=== PATIENT | female | born 1940 | race Two or more races ===

== ENCOUNTER 2017-12-02 12:57 | Emergency (ER) | payer MEDICARE, OTHER ==
--- NOTE | 2017-12-02 13:44 | ER Document Report ---
ED General - General Chief Complaint: Head Injury Stated Complaint: FALL/HEAD PAIN Time Seen by Provider: 12/02/17 13:24 Mode of Arrival: Ambulatory Information source: Patient, Relative - daughter Notes: Patient presents to emergency department after falling hitting her head on the dresser at approximately 11 PM last night. Family reports they heard the thump and went up the right away. Denies change in LOC.. Patient is unsure why she fell. Denies dizziness. The patient is very pleasant. Family reports she is acting the same as always. Patient has been eating and drinking without nausea vomiting. No deficits noted. Patient does have a history of subdural hemaotoma pproximately 4 years ago after she fell and hit her head. Is taking Coumadin for atrial fib. Daughter is concerned because last INR was approximately 6. Patient does complain of a headache. Family did not give her any type of pain medication. TRAVEL OUTSIDE OF THE [place] 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 Lives with: Family Family History: Reviewed & Not Pertinent Patient has suicidal ideation: No Patient has homicidal ideation: No - Past Medical History Cardiac Medical History: Reports: Hx Atrial Fibrillation, Hx DVT - bilateral Renal/ Medical History: Denies: Hx Peritoneal Dialysis Traumatic Medical History: Reports: Other - subdural hematoma Past Surgical History: Reports: Hx Thyroid Surgery Review of Systems - Review of Systems Notes: Review HPI for review of systems., All other systems negative Physical Exam - Vital signs Vitals: Temp Pulse Resp BP Pulse Ox 97.8 F 60 16 143/58 H 100 12/02/17 13:04 12/02/17 13:04 12/02/17 13:04 12/02/17 13:04 12/02/17 13:04 - Notes Notes: PHYSICAL EXAMINATION: GENERAL: Well-appearing and in no acute distress talkative, happy HEAD: Atraumatic, normocephalic. EYES: Pupils equal round and reactive to light, extraocular movements intact, sclera anicteric, conjunctiva are normal. ENT: nares patent, oropharynx clear without exudates. Moist mucous membranes. NECK: Normal range of motion, supple without lymphadenopathy LUNGS: CTAB and equal. No wheezes rales or rhonchi. HEART: Regular rate and rhythm without murmurs ABDOMEN: no c/o pain, eating/drinking as normal per daughter EXTREMITIES: Normal range of motion, no pitting edema. No cyanosis. NEUROLOGICAL: Cranial nerves grossly intact. Normal sensory/motor exams. PSYCH: Normal mood, normal affect. 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 Patient complaining of headache. Discussed Tylenol. Daughter reports that she thinks mother overdoses on Tylenol. She does not like want her to have any tylenol. She reports mother is often found sneaking bottles of tyelnol into her room. Tylenol level ordered INR 4.05 NIH score 0 12/02/17 16:02 Family concerned about INR of 4.0, reports it was 6.0 this am via home machine. requesting a cardiology consult. pt denies chest pain, no sob. Dr velazquez consulted, into room to assess patient and talk with family. No change in neuro status. 12/02/17 17:34 CTA and pelvic xray negative. Repeat NIH completed SCORE 0. Patient is alert oriented responds appropriately to all questions. No deficits noted no weakness noted. No c/o mosley. Family provided with copies of radiology and lab reports. instructed on s/s to monitor patient for. all questions answered. - Vital Signs Vital signs: Temp Pulse Resp BP Pulse Ox 97.8 F 60 12 126/52 H 97 12/02/17 13:04 12/02/17 13:04 12/02/17 13:29 12/02/17 16:01 12/02/17 16:01 - Laboratory Result Diagrams: 12/02/17 13:30 Laboratory results interpreted by me: 12/02/17 12/02/17 12/02/17 13:30 13:30 14:42 PT 41.2 H APTT 64.4 H Sodium 131.0 L Chloride 92 L Acetaminophen < 10 L - Diagnostic Test Radiology reviewed: Image reviewed, Reports reviewed - EXAM DESCRIPTION: CT CERVICAL SPINE WITHOUT; CT HEAD WITHOUT COMPLETED DATE/TIME: 12/02/2017 1:53 pm ; 12/02/2017 1:54 pm REASON FOR STUDY: mp fall hit head per pat COMPARISON: None. TECHNIQUE: Axial images acquired through the brain and cervical spine without intravenous contrast. Images reviewed with brain, subdural, lung, soft tissue and bone windows. Reconstructed coronal and sagittal MPR images reviewed. Images stored on PACS. All CT scanners at this facility use dose modulation, iterative reconstruction, and/or weight based dosing when appropriate to reduce radiation dose to as low as reasonably achievable (ALARA) . [facility]: Dose Right [facility]: CareDose [facility]: Dose Right [facility]: Teradose 4D [facility]: Smart [employer] RADIATION DOSE: CT Rad equipment meets quality standard of care and radiation dose reduction techniques were employed. CTDIvol: 16.8 mGy. DLP: 641 mGy-cm.; CT Rad equipment meets quality standard of care and radiation dose reduction techniques were employed. CTDIvol: 53.2 mGy. DLP: 1017 mGy-cm. mGy. LIMITATIONS: None. FINDINGS: Brain: Slight atrophy and small vessel disease suggested. Postoperative changes, left craniotomy. No skull fracture. No hemorrhage or mass or shift identified. Clear paranasal sinuses. Cervical spine: No posttraumatic malalignment. No fracture. Disc space loss with prominent anteriorly projecting osteophytes C3-4, C4-5, C5-6, C6-7. Soft tissues normal. Lung apices clear. IMPRESSION: 1. No acute intracranial abnormality. 2. Cervical spondylosis. No evidence of fracture or acute malalignment. EXAM DESCRIPTION: CT CERVICAL SPINE WITHOUT; CT HEAD WITHOUT COMPLETED DATE/TIME: 12/02/2017 1:53 pm; 12/02/2017 1:54 pm REASON FOR STUDY: mp fall hit head per pat COMPARISON: None. TECHNIQUE: Axial images acquired through the brain and cervical spine without intravenous contrast. Images reviewed with brain, subdural, lung, soft tissue and bone windows. Reconstructed coronal and sagittal MPR images reviewed. Images stored on PACS. All CT scanners at this facility use dose modulation, iterative reconstruction , and/or weight based dosing when appropriate to reduce radiation dose to as low as reasonably achievable (ALARA). [facility]: Dose Right [facility]: CareDose [facility]: Dose Right [facility]: Teradose 4D [facility]: [employer] RADIATION DOSE: CT Rad equipment meets quality standard of care and radiation dose reduction techniques were employed. CTDIvol: 16.8 mGy. DLP: 641 mGy-cm.; CT Rad equipment meets quality standard of care and radiation dose reduction techniques were employed. CTDIvol: 53.2 mGy. DLP: 1017 mGy-cm. mGy. LIMITATIONS: None. FINDINGS: Brain: Slight atrophy and small vessel disease suggested. Postoperative changes, left craniotomy. No skull fracture. No hemorrhage or mass or shift identified. Clear paranasal sinuses. Cervical spine: No posttraumatic malalignment. No fracture. Disc space loss with prominent anteriorly projecting osteophytes C3-4, C4-5, C5-6, C6-7. Soft tissues normal. Lung apices clear. IMPRESSION: 1. No acute intracranial abnormality. 2. Cervical spondylosis. No evidence of fracture or acute malalignment. - EKG Interpretation by Ia Rhythm: A.Fib Discharge - Discharge Clinical Impression: Head injury Qualifiers: Encounter type: initial encounter Qualified Code(s): S09.90XA - Unspecified injury of head, initial encounter Condition: Stable Disposition: HOME, SELF-CARE Instructions: Head Injury Precautions ([facility]), Ice Packs ([facility]) Additional Instructions: Causes of Subdural Hematoma Subdural hematoma is usually caused by a head injury, such as from a fall, motor vehicle collision, or an assault. The sudden blow to the head tears blood vessels that run along the surface of the brain. This is referred to as an acute subdural hematoma. People with a bleeding disorder and people who take blood thinners are more likely to develop a subdural hematoma. A relatively minor head injury can cause subdural hematoma in people with a bleeding tendency. In a chronic subdural hematoma, small veins on the outer surface of the brain may tear, causing bleeding in the subdural space. Symptoms may not be apparent for several days or weeks. Elderly people are at higher risk for chronic subdural hematoma because brain shrinkage causes these tiny veins to be more stretched and more vulnerable to tearing. Monitor your blood pressure. Your blood pressure was elevated today. This may be because you were anxious, in pain or because you need medication. It is important to follow up with your primary care provider for full evaluation. *You have been evaluated for a head injury *Her CT of her head and neck were negative for an acute injury *Her INR was 4.0, her tylenol level was normal *Apply ice packs to the back of her head for comfort *Please monitor you mother for change in mental status, vomiting *Follow up with her primary care provider within 5 days for recheck *Return to ED for worsening condition, changes, needs, change in mental status, vomiting, concerns Forms: Elevated Blood Pressure ED NIH Stroke Scale - NIH Stroke Scale When completed:: Before Alteplase *: 1. NIH scale should be completed with appropriate accompanying assessment tools. *: 2. The NIH should reflect what the patient is capable of doing and should not be coached by the clinician. 1a. Level of Consciousness: 0=Alert;keenly responsive -: 1=Drowsy -: 2=Obtunded -: 3=Coma/unresponsive or reflex to noxious stimuli. 1a. Responses: 0 1b. Orientation Questions: a. What month is it? -: b. How old are you? -: 0=Answers both questions correctly. -: 1=Answers one question correctly or patient is intubated or has orotracheal trauma. -: 2=Answers neither question correctly. 1b. Responses: 0 1c. Response to commands: a. Open and close eyes? -: b. Clinical Assoc and release hand? -: Credit is given despite weakness. Demonstration of task is permitted. Substitute command if hands cannot be used. -: 0=Performs both tasks correctly -: 1=Performs one task correctly -: 2=Performs neither task correctly 1c. Responses: 0 2. Gaze: Establish eye contact and instruct patient to "Follow my finger" -: 0=Normal -: 1=Partial gaze palsy. Gaze is abnormal in one or both eyes, but where forced deviation or total gaze paresis is not present. -: 2=Forced deviation or total gaze paresis. 2. Responses: 0 3. Visual Mayo: Sees fingers in all four quadrants. -: 0=No visual loss. -: 1=Partial hemianopsia. -: 2=Complete hemianopsia. -: 3=Bilateral hemianopsia (including Cortical blindness) 3. Responses: 0 4. Facial Movement: Instruct patient to: -: a. Show me your teeth -: b. Raise your eyebrows -: c. Close your eyes -: d. Smile -: 0=Normal symmetrical movement -: 1=Minor paralysis (flattened nasolabial fold, asymmetry on smiling). -: 2=Partial paralysis (total or near total paralysis of lower face). -: 3=Complete paralysis of upper and lower face 4. Responses: 0 5. Motor functions (left arm): Alternate sides and extend each arm with palms down (90 degrees if sitting or 45 degrees for supine). -: 0=No drift;limb holds for full 10 seconds. -: 1=Drift; limb holds but drifts down before full 10 seconds, but does not hit bed. -: 2=Some effort against gravity; limb cannot get to or maintain position. -: 3=No effort against gravity; limb falls. -: 4=No movement. -: UN=Amputation, joint fusion, explain in comments. 5. Responses (left arm): 0 5. Motor Functions (right arm): Alternate sides and extend each arm with palms down (90 degrees if sitting or 45 degrees for supine). -: 0=No drift;limb holds for full 10 seconds. -: 1=Drift; limb holds but drifts down before full 10 seconds, but does not hit bed. -: 2=Some effort against gravity; limb cannot get to or maintain position. -: 3=No effort against gravity; limb falls. -: 4=No movement. -: UN=Amputation, joint fusion, explain in comments. 5. Responses (right arm): 0 6. Motor Functions (left leg): With patient lying supine, alternate sides and extend each leg (30 degrees always while supine). -: 0=No drift, leg holds position for full 5 seconds -: 1=Drift; leg falls before full 5 seconds but does not hit bed. -: 2=Some effort against gravity, leg falls to bed but some effort against gravity. -: 3=No effort against gravity, leg falls to bed immediately. -: 4=No movement. -: UN=Amputation, joint fusion; explain in comments. 6. Responses (left leg): 0 6. Motor Functions (right leg): With patient lying supine, alternate sides and extend each leg (30 degrees always while supine). -: 0=No drift, leg holds position for full 5 seconds -: 1=Drift; leg falls before full 5 seconds but does not hit bed. -: 2=Some effort against gravity, leg falls to bed but some effort against gravity. -: 3=No effort against gravity, leg falls to bed immediately. -: 4=No movement. -: UN=Amputation, joint fusion; explain in comments. 6. Responses (right leg): 0 7. Limb Ataxia: With eyes open instruct patient to: -: a. "Touch your finger to your nose". -: b. "Touch your heel to your elizabeth" -: 0=Absent -: 1=Present in one limb. -: 2=Present in two limbs. -: UN=Amputation or joint fusion; explain in comments. 7. Responses: 0 8. Sensory: Test sensation using pinprick or noxious stimuli. Test as many body parts as possible. -: 0=Normal;no sensory loss -: 1=Mile to moderate sensory loss (patient feels pin prick but is less sharp on affected side). -: 2=Severe or total sensory loss. 8. Responses: 0 9. Best Language: Instruct patient to: -: a. "Describe what you see in this picture." -: b. "Name the items in this picture." -: c. "Read these sentences." -: 0=No aphasia, normal -: 1=Mild to moderate aphasia. -: 2=Severe aphasia -: 3=Mute, global aphasia, no usable speech or auditory comprehension. 9. Responses: 0 10. Articulation, Dysarthia: Instruct patient to: -: "Read these words" or "Repeat these words" -: 0=Normal -: 1=Mild to moderate; patient may slur some words but can be understood without difficulty. -: 2=Severe; patients speech so slurred as to be unintelligible in the absence of dysphasia. -: UN=Intubated or other physical barrier, explain in comments. 10. Responses: 0 11. Extinction or inattention: 0=No abnormality -: 1= Visual, tactile, auditory, spatial, or personal inattention or extinction to bilateral simulation in one or the sensory modalities. -: 2=Profound elza-inattention or elza-inattention to more than one modality; does not recognize own hand. 11. Responses: 0 Total Score: 0
--- NOTE | 2017-12-02 14:05 | RADIOLOGY REPORT (SQ) ---
EXAM DESCRIPTION: CT CERVICAL SPINE WITHOUT; CT HEAD WITHOUT COMPLETED DATE/TIME: 12/02/2017 1:53 pm; 12/02/2017 1:54 pm REASON FOR STUDY: mp fall hit head per pat COMPARISON: None. TECHNIQUE: Axial images acquired through the brain and cervical spine without intravenous contrast. Images reviewed with brain, subdural, lung, soft tissue and bone windows. Reconstructed coronal and sagittal MPR images reviewed. Images stored on PACS. All CT scanners at this facility use dose modulation, iterative reconstruction, and/or weight based d osing when appropriate to reduce radiation dose to as low as reasonably achievable (ALARA). [facility]: Dose Right [facility]: CareDose [facility]: Dose Right [facility]: Teradose 4D [facility]: [employer] RADIATION DOSE: CT Rad equipment meets quality standard of care and radiation dose reduction techniq ues were employed. CTDIvol: 16.8 mGy. DLP: 641 mGy-cm.; CT Rad equipment meets quality standard of ca re and radiation dose reduction techniques were employed. CTDIvol: 53.2 mGy. DLP: 1017 mGy-cm. mGy. LIMITATIONS: None. FINDINGS: Brain: Slight atrophy and small vessel disease suggested. Postoperative changes, left cr aniotomy. No skull fracture. No hemorrhage or mass or shift identified. Clear paranasal sinuses. Cervical spine: No posttraumatic malalignment. No fracture. Disc space loss with prominent anterio rly projecting osteophytes C3-4, C4-5, C5-6, C6-7. Soft tissues normal. Lung apices clear. IMPRESSION: 1. No acute intracranial abnormality. 2. Cervical spondylosis. No evidence of fractur e or acute malalignment. TECHNICAL DOCUMENTATION: JOB ID: [id number] Quality ID # [id number]: Final reports with documentation of one or more dose reduction techniques (e.g., Au tomated exposure control, adjustment of the mA and/or kV according to patient size, use of iterative reconstruction technique) 2010 [employer]- All Rights Reserved Reading location - IP/workstation name: [email or web address]
[2017-12-02 14:37] LABS: INTERNATIONAL RATION (INR) 4.05; PARTIAL THROMBOPLASTIN TIME 64.4 SEC (23.5-35.8); PROTHROMBIN TIME 41.2 SEC (11.4-15.4)
[2017-12-02] MEDS ORDERED: ACETAMINOPHEN 325 MG TABLET PO ONE (15:27)
[2017-12-02] MEDS ORDERED: DIPHENHYDRAMINE HCL 50 MG/ML VIAL IV ONE (15:54)
[2017-12-02] MEDS ORDERED: METOCLOPRAMIDE HCL INJ/PF 10 MG/2 ML SDV IV ONE (15:54)
[2017-12-02 16:14] LABS: ALANINE AMINOTRANSFERASE 44 U/L (9-52); ALBUMIN 4.3 g/dL (3.5-5.0); ALKALINE PHOSPHATASE 78 U/L (38-126); ANION GAP 11 (5-19); ASPARTATE AMINO TRANSFERASE 30 U/L (14-36); BILIRUBIN,DIRECT 0.3 mg/dL (0.0-0.4); BILIRUBIN,TOTAL 0.7 mg/dL (0.2-1.3); BLOOD UREA NITROGEN 7 mg/dL (7-20); CALCIUM 9.2 mg/dL (8.4-10.2); CARBON DIOXIDE 28 mmol/L (22-30); CHLORIDE 92 mmol/L (98-107); GLUCOSE 79 mg/dL (75-110); POTASSIUM 4.2 mmol/L (3.6-5.0); TOTAL PROTEIN 7.2 g/dL (6.3-8.2)
--- NOTE | 2017-12-02 16:48 | RADIOLOGY REPORT (SQ) ---
EXAM DESCRIPTION: PELVIS AP COMPLETED DATE/TIME: 12/02/2017 4:38 pm REASON FOR STUDY: COCCYX FALL COMPARISON: None. NUMBER OF VIEWS: One view TECHNIQUE: AP Pelvis LIMITATIONS: None. FINDINGS: MINERALIZATION: Normal. HIPS: No acute fracture or dislocation. No worrisome bone lesions. PELVIS AND SACRUM: No acute fracture or dislocation. No worrisome bone lesions. PUBIS AND ISCHIUM: No acute fracture. LOWER LUMBAR SPINE: No significant findings as visualized. SOFT TISSUES: No findings. OTHER: No other significant finding. IMPRESSION: NEGATIVE STUDY OF THE PELVIS. TECHNICAL DOCUMENTATION: JOB ID: [id number] [employer]- All Rights Reserved Reading location - IP/workstation name: [email or web address]
--- NOTE | 2017-12-02 17:17 | RADIOLOGY REPORT (SQ) ---
EXAM DESCRIPTION: CTA HEAD COMPLETED DATE/TIME: 12/02/2017 5:06 pm REASON FOR STUDY: COCCYX FALL,HEAD INJURY COMPARISON: CT brain without from earlier. TECHNIQUE: Post IV contrast scanning, thin section axial imaging through the brain to evaluate the a rterial structures. Source and MIP images are saved and reviewed on PACS. Advanced 3D imaging as volume-rendering, MIPs, SSD performed? yes All CT scanners at this facility use dose modulation, iterative reconstruction, and/or weight based d osing when appropriate to reduce radiation dose to as low as reasonably achievable (ALARA). [facility]: Dose Right [facility]: CareDose [facility]: Dose Right [facility]: Teradose 4D [facility]: [employer] CONTRAST TYPE AND DOSE: contrast/concentration: Isovue 350.00 mg/ml; Total Contrast Delivered: 70.0 ml; Total Saline Delivered: 75.0 ml RENAL FUNCTION: Creatinine 0.8 LIMITATIONS: None. FINDINGS: [place]: The anterior, middle, posterior cerebral arteries are all patent. No ev idence of aneurysm or focal stenosis. POSTERIOR CIRCULATION: The distal vertebral arteries are patent as is the basilar artery. No aneurysm . BRAIN: No enhancing lesions. BONES: Left craniotomy changes, as before. SINUSES: No fluid or mucosal thickening. OTHER: No other significant finding. IMPRESSION: NO CTA EVIDENCE OF STENOSIS OR ANEURYSM OF THE [place]. TECHNICAL DOCUMENTATION: JOB ID: [id number] Quality ID # [id number]: Final reports with documentation of one or more dose reduction techniques (e.g., Au tomated exposure control, adjustment of the mA and/or kV according to patient size, use of iterative reconstruction technique) 2010 [employer]- All Rights Reserved Reading location - IP/workstation name: [email or web address]
[2017-12-02 19:44] VITALS: BP 144/71
--- NOTE | 2017-12-02 22:15 | EKG REPORT ---
SEVERITY:- ABNORMAL ECG - ATRIAL FIBRILLATION LOW VOLTAGE THROUGHOUT : Confirmed by: Bienvenido Alford 02-Dec-2017 22:14:44
== END 2017-12-02 17:45 | disposition home or self-care (01) ==
LOC: ER 12:57
DX: S09.90XA Unspecified injury of head, initial encounter (principal); R51 Headache; W22.03XA Walked into furniture, initial encounter; I48.91 Unspecified atrial fibrillation; Z79.01 Long term (current) use of anticoagulants
CPT/HCPCS: 93005; 99284; 96374; 96375; 36415; 80307; 85610; 85730; 80053; 72170; 70450; 70496; 72125; 93010; A9270; J1200; J2765